=== PATIENT | male | born 1965 ===

== ENCOUNTER 2017-09-16 10:05 | Emergency (ER) | payer OTHER ==
[2017-09-16 10:26] VITALS: BP 130/78; PULSE 111; RESP 18; TEMP 98.5; O2SAT 98
[2017-09-16 11:22] LABS: EOS # 0.2 K/uL (0.0-0.7); MONO # 0.4 K/uL (0.0-0.8); RED CELL DISTRIBUTION WIDTH 12.7 % (11.5-14.5)
--- NOTE | 2017-09-16 11:27 | C.PDOC ---
History Of Present Illness 52-year-old male, presents to the emergency department requesting a work note. Patient states he was experiencing dizziness this morning because he had not eaten breakfast this morning. Patient then went to eat breakfast at restaurant and felt better. Denies any dizziness upon arrival to ED. Currently complaining of a mild throat pain. Patient states he called out of work and needs an excuse. at bedside also requests a note for her job. Denies nausea, vomiting, fevers, chills, chest pain or shortness of breath. = Time Seen by Provider: 09/16/17 11:12 Chief Complaint (Nursing): Dizziness/Lightheaded History Per: Patient History/Exam Limitations: no limitations Current Symptoms Are (Timing): Gone Past Medical History Reviewed: Historical Data, Nursing Documentation, Vital Signs Vital Signs: Last Vital Signs Temp 98.5 F 09/16/17 10:20 Pulse 111 H 09/16/17 10:20 Resp 18 09/16/17 10:20 BP 130/78 09/16/17 10:20 Pulse Ox 98 09/16/17 12:36 - Medical History PMH: HTN, Hypercholesterolemia Surgical History: Appendectomy Family History: States: No Known Family Hx - Social History Hx Alcohol Use: No Hx Substance Use: No - Immunization History Hx Tetanus Toxoid Vaccination: Yes Hx Influenza Vaccination: Yes Hx Pneumococcal Vaccination: Yes Review Of Systems Constitutional: Negative for: Fever, Chills ENT: Positive for: Throat Pain Cardiovascular: Negative for: Chest Pain Respiratory: Negative for: Shortness of Breath Gastrointestinal: Negative for: Nausea, Vomiting Musculoskeletal: Negative for: Arm Pain Skin: Negative for: Rash Neurological: Positive for: Dizziness (now resolved). Negative for: Weakness, Numbness, Headache Physical Exam - Physical Exam Appears: Non-toxic, No Acute Distress Skin: Warm, Dry, No Rash Head: Atraumatic, Normacephalic Eye(s): bilateral: Normal Inspection, EOMI Nose: Normal Oral Mucosa: Moist Lips: Normal Appearing Throat: Normal, No Erythema, No Exudate, No Drooling Neck: Normal ROM Chest: Symmetrical Cardiovascular: Rhythm Regular, No Murmur Respiratory: Normal Breath Sounds, No Accessory Muscle Use Gastrointestinal/Abdominal: Normal Exam, Soft, No Tenderness, No Distention, No Guarding Extremity: Normal ROM, No Tenderness, No Deformity, No Swelling Neurological/Psych: Oriented x3, Normal Speech ED Course And Treatment - Laboratory Results Result Diagrams: 09/16/17 11:18 09/16/17 11:18 ECG: Interpreted By Me, Viewed By Me ECG Rhythm: Sinus Rhythm ECG Interpretation: Normal Rate From EC O2 Sat by Pulse Oximetry: 98 (on RA) Pulse Ox Interpretation: Normal Medical Decision Making Medical Decision Making: Impression 52y/o M comes in requesting work note. Dizziness from this morning now resolved. Patient had labs drawn and sent prior to my evaluation. Patient is stable and will be discharged with a note for work. Disposition Counseled Patient/Family Regarding: Diagnosis, Need For Followup, Rx Given - Disposition Referrals: [facility] [Outside] Disposition: HOME/ ROUTINE Disposition Time: 12:00 Condition: GOOD Additional Instructions: Pruebe la pastilla de cepacol para el dolor de garganta y las grgaras [place] Tylenol o Motrin alternando cada 4-6 horas para Fiebre 100.4F o superior. seguimiento en la clnica para ms atencin mdica Prescriptions: Benzocaine/Menthol [Cepacol Sore Throat] 1 patrice MM Q2 #30 patrice Instructions: Pharyngitis (ED) Forms: Accompanied To ED By:, [employer] (Tanzanian), Work Excuse Print Language: MOLDOVAN - POA Present On Arrival: None - Clinical Impression Clinical Impression: Dizziness, Sore throat in the morning - Scribe Statement The provider has reviewed the documentation as recorded by the Scribe (Debbie Brown) All medical record entries made by the Scribe were at my direction and personally dictated by me. I have reviewed the chart and agree that the record accurately reflects my personal performance of the history, physical exam, medical decision making, and the department course for this patient. I have also personally directed, reviewed, and agree with the discharge instructions and disposition.
[2017-09-16 11:38] LABS: ALBUMIN 4.6 g/dL (3.5-5.0); ALT/SGPT 32 U/L (21-72); AST/SGOT 29 U/L (17-59); BLOOD UREA NITROGEN 14 mg/dL (9-20); CALCIUM 8.9 mg/dl (8.6-10.4); GFR AFRICAN-AMERICAN > 60; GFR NON-AFRICAN AMERICAN > 60
[2017-09-16 11:47] LABS: BASO % 0.9 % (0.0-2.0); EOS % 4.1 % (0.0-4.0); LYMPH # 1.9 K/uL (1.0-4.3); LYMPH % 36.4 % (20.0-40.0); MEAN PLATELET VOLUME 8.2 fL (7.2-11.7); MONO % 8.2 % (0.0-10.0); NEUT # 2.6 K/uL (1.8-7.0); NEUT % 50.4 % (50.0-75.0); NRBC % 0.2 % (0.0-2.0); WHITE BLOOD COUNT 5.3 K/uL (4.8-10.8)
[2017-09-16 11:53] LABS: ALB/GLOB RATIO 1.2 (1.0-2.1)
[2017-09-16 12:05] LABS: HEMOGLOBIN 15.7 g/dL (12.0-18.0); MEAN CORPUSCULAR HEMOGLOBIN 33.4 pg (27.0-31.0); MEAN CORPUSCULAR HGB CONC 35.6 g/dL (33.0-37.0); RBC 4.69 Mil/uL (4.40-5.90)
--- NOTE | 2017-09-17 23:12 | CARD ---
APPROVED REPORT EKG Measurement Heart [id number] <Conclusion> Normal sinus rhythm Normal ECG
== END 2017-09-16 12:03 | disposition home or self-care (01) ==
LOC: C.ER 10:05
DX: R42 Dizziness and giddiness (principal); J02.9 Acute pharyngitis, unspecified; I10 Essential (primary) hypertension; E78.00 Pure hypercholesterolemia, unspecified